=== PATIENT | female | born 1950 | race Caucasian/White ===

== ENCOUNTER → 2021-12-11 15:32 | Outpatient (CLI) | payer OTHER, SELFPAY ==
--- NOTE | 2021-12-11 | DI.MRI.S_ITS ---
PROCEDURE: MR CERVICAL SPINE WO CON INDICATIONS: Spinal stenosis, cervical region TECHNIQUE: Noncontrast sagittal T1 spin echo and T2 fast spin echo, sagittal STIR, foraminal oblique sagittal T2 fast spin echo, and axial gradient echo or T2 fast spin echo through the cervical spine. COMPARISON: None. FINDINGS: Image quality: Excellent. Alignment and Curvature: Grade 1 degenerative anterior spondylolisthesis noted at C7-T1 Bone Marrow: Modic type 1 degenerative endplate changes noted C5-6 Spinal Cord: Visualized spinal cord has normal size and signal. No cerebellar tonsillar herniation. Paraspinous Soft Tissues: No paravertebral masses. Prevertebral soft tissues are normal in thickness. C2-C3: Posterior central disc protrusion measures 3 mm in thickness and indents the ventral surface of the cord. Moderate central stenosis. No foraminal stenosis C3-C4: Disc space narrowing and posterior disc osteophyte complex flattens the ventral surface of the cord. Moderate central stenosis. No foraminal stenosis. C4-C5: Disc space narrowing with posterior disc osteophyte complex and hypertrophic facet joints results in flattening the ventral surface of the cord and moderate central stenosis. Moderate right and no left foraminal stenosis. C5-C6: Disc space narrowing and posterior disc osteophyte complex flattens the ventral surface of the cord results in moderate to severe central stenosis, narrowing the AP diameter of the thecal sac to 6 mm. Moderate bilateral foraminal stenosis present. C6-C7: Disc space narrowing and posterior disc osteophyte complex results in moderate central stenosis. Hypertrophic facet joints uncovertebral joints contribute to moderate bilateral foraminal stenosis. C7-T1: Disc space narrowing and posterior disc bulge noted without central or foraminal stenosis. IMPRESSION: Multilevel degenerative disc disease and arthropathy results in varying degrees of central and foraminal stenosis including moderate to severe central stenosis at C5-6 and moderate central stenosis at C2-3 through C4-5 Approved by: Brennen Rodriguez M.D. on 12/11/2021 at 16:36
== END ==
PROVIDERS: PCP Physician Assistant; Referring Provider Physical Medicine & Rehabilitation; Visit Provider Physical Medicine & Rehabilitation
DX: M48.02 Spinal stenosis, cervical region (principal); M47.812 Spondylosis without myelopathy or radiculopathy, cervical region; M50.31 Other cervical disc degeneration, high cervical region
CPT/HCPCS: 72141

== ENCOUNTER → 2022-12-25 11:07 | Outpatient (CLI) | payer OTHER, SELFPAY ==
--- NOTE | 2022-12-25 11:09 | DI.MRI.S_ITS ---
PROCEDURE: MR LUMBAR SPINE WO CON INDICATIONS: Spondylolisthesis, lumbar region TECHNIQUE: Noncontrast sagittal T1 spin echo and T2 fast echo, sagittal STIR, and T2 fast spin echo through the lumbar spine. In cases with scoliosis, additional coronal T2 fast spin echo may be performed. COMPARISON: None. FINDINGS: Image quality: Excellent. Alignment and Curvature: Grade 1 degenerative anterior spondylolisthesis noted at L4-5 Bone Marrow: Marrow is of normal overall signal. No acute vertebral body compression fractures. Spinal Cord: Conus medullaris terminates at the L1 level. Visualized cord demonstrates normal signal and size. Paraspinous Soft Tissues: No paravertebral masses. T12-L1: Normal appearance. L1-L2: Normal appearance. L2-L3: Normal appearance. L3-L4: Disc space narrowing and circumferential disc bulge with hypertrophic facet joints results in mild central stenosis. Moderate bilateral foraminal stenosis L4-L5: Disc space narrowing and hypertrophic facet joints with ligamentum flavum laxity and circumferential disc bulge all combined result in severe central stenosis. Mild bilateral foraminal stenosis. L5-S1: Hypertrophic facet joints noted with circumferential disc bulge. There is a superimposed focal left subarticular disc protrusion/extrusion with inferior migration a noted, filling the left lateral recess displacing the descending nerve root. Mild central stenosis. Mild bilateral foraminal stenosis. IMPRESSION: Multilevel degenerative disc disease and arthropathy results in varying degrees of central and foraminal stenosis including severe central stenosis L4-5. Focal disc protrusion/extrusion with inferior migration fills the left lateral recess at L5-S1 Approved by: Brennen Rodriguez M.D. on 12/25/2022 at 18:07
== END ==
PROVIDERS: PCP Physician Assistant; Referring Provider Orthopaedic Surgery Orthopaedic Surgery of the Spine; Visit Provider Orthopaedic Surgery Orthopaedic Surgery of the Spine
DX: M43.16 Spondylolisthesis, lumbar region (principal); M48.061 Spinal stenosis, lumbar region without neurogenic claudication; M48.07 Spinal stenosis, lumbosacral region; M51.36 Other intervertebral disc degeneration, lumbar region; M51.37 Other intervertebral disc degeneration, lumbosacral region; M47.816 Spondylosis without myelopathy or radiculopathy, lumbar region; M47.817 Spondylosis without myelopathy or radiculopathy, lumbosacral region; M51.27 Other intervertebral disc displacement, lumbosacral region
CPT/HCPCS: 72148

== ENCOUNTER → 2023-02-13 14:49 | Outpatient (CLI) | payer OTHER, SELFPAY ==
[2023-02-13 15:35] LABS: Add Manual Diff / Slide Review NO; Basophils Absolute Auto 100 /uL (0-100); Basophils Percent Auto 0.8 % (0-2); Eosinophils Absolute Auto 100 /uL (0-450); Eosinophils Percent Auto 1.1 % (2-4); Hematocrit 42.4 % (36-46); Hemoglobin 14.8 g/dL (12.0-16.0); Lymphocytes Absolute Auto 2000 /uL (1100-4500); Lymphocytes Percent Auto 24.3 % (25-40); Mean Corpuscular HGB Conc 34.9 % (30-36); Mean Corpuscular Hemoglobin 32.9 PG (26-34); Mean Corpuscular Volume 94.4 fL (80-100); Monocytes Absolute Auto 400 /uL (0-900); Neutrophils Absolute Auto 5600 /uL (1500-7000); Neutrophils Percent Auto 68.8 % (50-75); Platelet Count 306 X10^3/uL (150-400); Red Blood Cell Count 4.49 X10^6/uL (4.0-5.2); Red Cell Distribution Width 12.6 % (11.6-14.8); White Blood Cell Count 8.2 X10^3/uL (4.5-11.0)
[2023-02-13 15:38] LABS: Hemoglobin A1C% w Est Avg Glu 5.4 % (4.0-6.0)
[2023-02-13 15:46] LABS: BUN Creatinine Ratio 27.6 (6-22); Blood Urea Nitrogen 16 mg/dL (7-17); Calcium 9.3 mg/dL (8.4-10.2); Carbon Dioxide 30 mmol/L (22-32); Chloride 103 mmol/L (98-107); Estimated Glomerular Filt Rate > 60 mL/min (>60); Glucose 158 mg/dL (80-110); HEMOLYSIS < 15 (0-50); Potassium 3.8 mmol/L (3.4-5.1); Sodium 138 mmol/L (137-145)
== END ==
PROVIDERS: PCP Physician Assistant; Referring Provider Orthopaedic Surgery Orthopaedic Surgery of the Spine; Visit Provider Orthopaedic Surgery Orthopaedic Surgery of the Spine
DX: Z01.818 Encounter for other preprocedural examination (principal); R73.9 Hyperglycemia, unspecified; Z01.812 Encounter for preprocedural laboratory examination
CPT/HCPCS: 36415; 80048; 83036; 85025; 93005

== ENCOUNTER → 2023-02-19 09:58 | Outpatient (CLI) | payer OTHER, SELFPAY ==
--- NOTE | 2023-02-19 | DI.CT.S_ITS ---
PROCEDURE: CT LUMBAR SPINE WO CON INDICATIONS: Spinal stenosis, lumbar region with neurogenic cla TECHNIQUE: Noncontrast 0.8 mm thick sections acquired from the T12 level to the sacrum. Sagittal and coronal reformats were constructed. For radiation dose reduction, the following was used: automated exposure control. COMPARISON: [facility], MR, MR LUMBAR SPINE WO CON, 12/25/2022, 11:25. [facility], CR, XR LUMBAR SPINE 2 OR 3 VIEWS, 12/03/2022, 14:51. FINDINGS: Image quality: Excellent. Bones: No acute vertebral body compression fractures. No suspicious lytic or blastic bony lesions. No pars defects. Minimal retrolisthesis is seen at L1-L2. Minimal anterolisthesis is seen at the L4-L5 and the L5-S1 levels. T12-L1: Normal. L1-L2: The disc height is relatively well preserved. Mild generalized disc bulge is seen. There is a mild central disc protrusion. There is mild left-sided and no right-sided neural foraminal narrowing. No central canal narrowing is seen. L2-L3: Normal. L3-L4: The disc height is relatively well preserved. Moderate generalized disc bulge is seen. Moderate facet joint hypertrophy is seen. There is moderate right-sided and ihyi-[id number] left-sided neural foraminal narrowing. Moderate central canal narrowing is seen. L4-L5: The disc height is relatively well preserved. Moderate disc bulge is seen, with a central disc protrusion. Moderate to prominent facet hypertrophy is seen at this level. At least moderate bilateral neural foraminal narrowing can be seen. Moderate to severe central canal narrowing is seen. L5-S1: Mild loss of disc height is seen. Vacuum disc phenomenon is seen at this level. Mild generalized disc bulge is seen. At least moderate facet hypertrophy is seen. There is moderate right-sided and njpo-fh-mcdngifh left-sided neural foraminal narrowing. Moderate central canal narrowing is seen. Soft tissues: No retroperitoneal masses or hematomas. Visualized aorta is normal in caliber. Atherosclerotic calcification is noted. Colonic diverticulosis is seen, without findings of active diverticulitis. IMPRESSION: Multiple levels of lumbar spine degenerative change can be seen, which are overall worst at the L4-L5 level. The degenerative changes are similar to the recent prior MRI. Additional findings: Diverticulosis, without active diverticulitis Dictated by: Uri Casper M.D. on 02/19/2023 at 10:15 Approved by: Uri Casper M.D. on 02/19/2023 at 10:20
== END ==
PROVIDERS: PCP Physician Assistant; Referring Provider Orthopaedic Surgery Orthopaedic Surgery of the Spine; Visit Provider Orthopaedic Surgery Orthopaedic Surgery of the Spine
DX: M48.062 Spinal stenosis, lumbar region with neurogenic claudication (principal)
CPT/HCPCS: 72131

== ENCOUNTER 2023-02-28 09:43 | Inpatient (IN) | payer OTHER, SELFPAY ==
[2023-02-24 09:27] VITALS: BMI 27.6
[2023-02-28] VITALS (14 sets, daily range): BP systolic 126–188; BP diastolic 65–98; PULSE 100–116; RESP 12–19; TEMP 36.3–37.2; O2SAT 94–100; BMI 27.6
--- NOTE | 2023-02-28 | DI.RAD.S_ITS ---
PROCEDURE: XR LUMBAR SPINE 2-3V INDICATIONS: TLIF TECHNIQUE: 2 intraoperative fluoroscopic views of the lumbar spine were acquired. COMPARISON: None. FINDINGS: Intraoperative fluoroscopic views during posterior spinal fixation and discectomy. IMPRESSION: Intraoperative fluoroscopic views during posterior spinal fixation and discectomy. Dictated by: Cody Bey M.D. on 02/28/2023 at 16:54 Approved by: Cody Bey M.D. on 02/28/2023 at 16:54
[2023-02-28] MEDS: LACTATED RINGERS 1,000 ML 42 ML IV ×2 (10:48→14:04)
--- NOTE | 2023-02-28 12:12 | PM.PREOP ---
Pre-operative Note Interval Note History & Physical reviewed/Exam performed by Physician: Yes Changes to H&P: No
--- NOTE | 2023-02-28 13:37 | SUR.OPER ---
Prone on spine table, head in foam head support, padded chest and pelvic supports, gel pad at knees, lower legs supported by pillows; nipples, genitalia and toes free of pressure, arms secured on foam padded arm boards at <90 degrees abduction. Tape over blanket at thigh secured to table.
[2023-02-28] MEDS: BUPIVACAINE LIPOSOME 266 MG/20 ML VIAL INJ (14:06)
[2023-02-28] MEDS: BUPIVACAINE 0.5% (PF) 30 ML, EPINEPHrine 0.15 MG INJ (14:06)
--- NOTE | 2023-02-28 16:52 | P.OP_ITS ---
Operative Date/Time/Diagnoses Date of procedure: 02/28/23 Time of procedure: 12:30 Pre-op diagnosis: 1. L4-5, L5-S1 spinal stenosis with neurogenic claudication 2. L4-5, L5-S1 spondylolisthesis Post-op diagnosis: same Procedure & Clinicians Procedure: 1. L4-5, L5-S1 Postero-lateral and posterior interbody fusion 2. L4-5, L5-S1 interbody cage placement. 3. L4-5, L5-S1 decompressive laminectomy with bilateral facetecomies 4. L4-5, L5-S1 Posterior segmental instrumentation 5. [place] of bone marrow from iliac crest 6. Utilization of microsurgical technique and operating microscope 7. Utilization of robotic assisted navigation Same procedure as scheduled: Yes Indications: Patient has been having chronic back pain and worsening lumbar radiculopathy and symptoms of neurogenic claudication. Patient failed multiple conservative management with worsening pain weakness and numbness in her lower extremity. Patient has been having difficulty performing activity of daily living. After discussing risks benefits of treatment options, patient elected proceed with surgery. Surgeon: Mary Ann Pal Linen Room Attendant: Liam Loaiza Click Yes if Unassisted: No Anesthesia Type: General Operative Notes Closure Type: primary Specimen(s): none sent Prosthetic devices, grafts, tissues, transplants, or devices: Globus CREO MIS screws, Rise cages Applied: catheter Estimated Blood Loss (mL): 150 Blood products transfused: none Procedure in detail: Patient was seen in the preoperative area. Risks and benefits of the surgery was discussed with the patient. Informed consent was obtained from the patient and placed in the chart. Surgical site was marked. Patient was taken to the operative room. General anesthesia was administered. Prophylactic antibiotic was given to the patient less than 30 min before the incision was made. Patient was placed into a prone position on the Sergio table. Patient's back was then prepped and draped in the sterile fashion. Time-out was performed at this time. After patient was prepped and draped, patient's PSIS was palpated and marked bilaterally. Small 1 cm incision was made over the PSIS for placement of the reference probes. Two trocar was placed into the PSIS 1 on each side. The reference probe was attached to the trocar of the reference apparatus. At this time the C-arm imaging was used to confirm AP and lateral of L4-L5, L5- S1 vertebrae and merged the C-arm imaging using the [place] robotic navigation system with the CT of the lumbar spine. After successful merging was completed and confirmed, skin marker was used to manish out the skin incision using the [employer] robotic arm. Bilateral incision was made at this time. Pre templated trajectory was used and guided using the [employer] navigation system for bilateral L4, L5, S1 pedicle screw placement. This was done by using the robotic arm to guide the high-speed bur to make a cortical entry point. Next a drill was placed also using the robotic arm and guided using the navigation system drilling partially through bilateral L4, L5 and S1 pedicles. Next L4, L5, S1 pedicle screws it was pre templated and measured was placed onto the power industrial tractor driver and inserted into the pedicles bilaterally. After all 6 screws were placed C-arm imaging was taken of both AP and lateral to confirm the placement. Excellent placement of the screws were confirmed and a matched precisely with the pre planned screw placement using the navigation system. MARs retractor was inserted using [employer] guidence. Globus MARS retractors was placed inside the incision and docked onto the L4 and L5 lamina. Using microsurgical technique and operating microscope, a L4, L5 laminectomy and L4-5, L5-S1 facetectomy was performed using a [place] rongeur. The laminectomy and facetectomy was performed in order to decompress patient's cauda equina as well as the nerve roots exiting at the L4-5, L5-S1 level. Patient was found have severe lateral recess and neural foramen stenosis which was fully decompressed after the laminectomy facetectomy. More than 75% of the facets were removed during the process of decompression rendering L4-5, L5-S1 level grossly unstable and required a fusion procedure at the same time. The disc space at L4-5, L5-S1 was identified, and a total diskectomy was performed at L4-5, L5-S1 level. The endplates were decorticated using a rasp and shaver. The total diskectomy and decortication was performed at L4-5, L5-S1 level in order to to accomplish a L4- 5, L5-S1 fusion. The local bone from the laminectomy and facetectomy was saved for local bone grafting. After the total diskectomy and decortication was completed, DBM bone graft material was combined with local bone that was harvested earlier. At this time, a separate skin is incision was made over the iliac crest. A Jamshidi needle was inserted into the iliac crest through a separate skin incision. 5 cc of bone marrow aspiration was obtained through the separate skin incision using a Jamshidi needle from the iliac crest. The bone marrow aspiration was combined with local bone and the DBM bone grafting material. The bone grafting material was placed into the L4-5, L5-S1 interbody space along with a expandable cage. The cage was expanded to its maximum height using the torque limiting screwdriver. The disc preparation as well as the cage insertion were also performed under navigation guidance. After the cage was placed, AP and lateral C-arm imaging was taken to confirm placement of the cage and excellent position was confirmed. Globus MARS retractor was inserted and docked onto the L4-5, L5-S1 posterolateral gutter on the right side. Using the power drill, posterior- lateral decortication was performed at L4-5, L5-S1 level until bleeding cortical bone was identified. The remaining bone grafting material was placed into the L4-5, L5-S1 posterior lateral gutter he order to accomplish posterolateral fusion at the L4-5, L5-S1 level. At this time the tulips were attached to the L4, L5, S1 pedicle screw shanks. After measuring the length of the rods, they were inserted into the t[place]ips of the pedicle screws and locked in place using locking caps and torque limiting screwdriver bilaterally. Total 6 caps and 2 titanium rods was used in order to complete the posterior instrumentation construct. After all the hardware was placed, and confirmed with AP and lateral C-arm imaging, the wound was then irrigated with sterile normal saline and packed with Ray-Debby gauze for 3 min to accomplish hemostasis. After the gauze was removed the deep fascia was closed with #1 Vicryl suture. The subcutaneous layer was closed with 2-0 Vicryl. The skin was closed with skin kacy. Patient tolerated the procedure well. There were no complications. Neuro monitoring system was used to monitor patient's neurologic status throughout entire procedure. There was no disturbance of the neural monitoring signals throughout the case. Complications: none Post-operative Condition: stable Disposition: PACU Plan for aftercare: Admit to inpatient hospital
[2023-02-28] MEDS: HYDROMORPHONE 1 MG INJ IV ×2 (17:18→17:30)
[2023-02-28] MEDS: LABETALOL 20 MG/4 ML SYRINGE 5 MG IV (17:21)
[2023-02-28] MEDS: hydrOXYzine 50 MG/ML INJ 25 MG IM (17:24)
[2023-02-28] MEDS: LACTATED RINGERS 1,000 ML 125 ML IV (18:47)
[2023-02-28] MEDS: OXYCODONE IR 10 MG TABLET PO ×2 (18:50→23:16)
[2023-02-28] MEDS: HYDROMORPHONE 0.5 MG INJ IV (20:17)
[2023-02-28] MEDS: ACETAMINOPHEN 325 MG TABLET 650 MG PO (20:17)
[2023-02-28] MEDS: CEFAZOLIN 2 GM/100 ML PREMIX 100 ML IV (21:51)
[2023-02-28] MEDS: TRAMADOL 50 MG TABLET PO (21:52)
[2023-02-28] MEDS: SENNOSIDES 8.6 MG TABLET 17.2 MG PO (21:52)
[2023-02-28] MEDS: DOCUSATE 100 MG CAPSULE PO (21:52)
[2023-02-28] MEDS: GABAPENTIN 600 MG TABLET PO (21:52)
[2023-02-28] MEDS: ATORVASTATIN 20 MG TABLET PO (21:52)
[2023-02-28] MEDS: hydrOXYzine pamoate 25 MG CAPSULE PO (23:16)
[2023-03-01 00:37] VITALS: BP 117/60; PULSE 93; RESP 18; TEMP 36.7; O2SAT 93
[2023-03-01] MEDS: HYDROMORPHONE 0.5 MG INJ IV (01:10)
[2023-03-01 04:00] VITALS: BP 118/57; PULSE 86; RESP 18; TEMP 36.5; O2SAT 94
[2023-03-01] MEDS: ACETAMINOPHEN 325 MG TABLET 650 MG PO ×2 (05:40→12:30)
[2023-03-01] MEDS: OXYCODONE IR 10 MG TABLET PO ×3 (05:41→12:30)
[2023-03-01] MEDS: CEFAZOLIN 2 GM/100 ML PREMIX 100 ML IV (05:41)
[2023-03-01] MEDS: LEVOTHYROXINE 25 MCG TABLET 75 MCG PO (05:41)
[2023-03-01 06:31] LABS: Hematocrit 33.5 % (36-46); Hemoglobin 11.4 g/dL (12.0-16.0)
[2023-03-01 08:00] VITALS: BP 124/59; PULSE 90; RESP 16; TEMP 36.2; O2SAT 90
[2023-03-01] MEDS: VENLAFAXINE 37.5 MG TABLET 225 MG PO (08:19)
[2023-03-01] MEDS: MONTELUKAST 10 MG TABLET PO (08:20)
[2023-03-01] MEDS: LORATADINE 10 MG TABLET PO (08:20)
[2023-03-01] MEDS: hydrOXYzine pamoate 25 MG CAPSULE PO (08:20)
[2023-03-01] MEDS: DOCUSATE 100 MG CAPSULE PO (08:20)
[2023-03-01] MEDS: GABAPENTIN 600 MG TABLET PO (08:20)
--- NOTE | 2023-03-01 08:58 | PM.PNPO.1 ---
Subjective Subjective Date Patient Seen: 03/01/23 Time Patient Seen: 08:58 Interval history: Patient's pain is mild. Denies fever chills. No shortness of breath or chest pain patient states she noticed her left lower lip is swollen. She states her lip typically starts swelling and then continues to have some facial swelling. 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 Exam Vital Signs (past 8 hours): - 03/01/23 04:00 Temperature 97.7 F Pulse Rate 86 Respiratory Rate 18 Blood Pressure 118/57 L Pulse Oximetry 94 Oxygen Flow Rate 2 Oxygen Delivery Method Nasal Cannula Oxygen Flow Rate 2 Narrative Exam Narrative: 72-year-old female in no apparent distress. Motor function is intact bilateral lower extremities. Sensation grossly intact to light touch bilateral lower extremities. Mild swelling left lower lip. Const General: cooperative and comfortable Nutritional Appearance: average body habitus Orientation: alert Resp Effort & Inspection: normal respiratory effort and able to speak in complete sentences Objective Labs 03/01/23 05:35 Labs: Laboratory Results - last 24 hr 03/01/23 05:35 Hgb 11.4 L Hct 33.5 L PFSH Medical History (Updated 02/24/23 @ 10:21 by Lacy Madden RN) Depression Easy bruisability Arthritis Spinal stenosis Hypothyroidism HLD (hyperlipidemia) HTN (hypertension) SRUTHI on CPAP Sciatica Seasonal allergies Surgical History (Updated 02/24/23 @ 10:21 by Lacy Madden RN) Hx of arthroscopy of right knee H/O right wrist surgery History of arthroscopy of left shoulder Hx of repair of right rotator cuff Hx of breast reduction, elective History of urologic surgery History of hysterectomy Hx of nasal septoplasty Hx of bilateral cataract extraction Social History household members: spouse Smoking Status: Never smoker alcohol intake: current Assessment & Plan Post-op Postoperative Procedures: Procedures Operation Date: 02/28/23 11:45 Actual Procedure Side Surgeon p L4-5, L5-S1 TLIF with posterior instrumentation-Robot Mary Ann Pal MD Postoperative day: 1 Postoperative status: doing well Postoperative status narrative: Stable status post lumbar fusion. Postoperative plan: routine post-op care Postoperative plan narrative: Mobilize with physical therapy, limit bending, twisting, lifting Due to multiple allergies and sensitivity to medication we will go ahead and give her prednisone today and 1 again tomorrow per her routine recommended by regional company hazmat tanker driver Multimodal pain management Disposition, likely home tomorrow Quality VTE Deep Vein Thrombosis/Pulmonary Embolism Present on Admission: No
[2023-03-01] MEDS: predniSONE 20 MG TABLET PO (08:59)
--- NOTE | 2023-03-01 09:04 | PC.NURSE ---
Addendum entered by Martha Stanton R.N. 03/01/23 12:08: pt was able to take her allergy medication. no further swelling. cox taken out and already voided to the bathroom. Original Note: lt side of her lip started swelling. MIRNA Wheeler in the room and was informed about her allergic reaction due to cefazolin. gave 20mg of prednisone. patient waiting for her zyrtec from home.
--- NOTE | 2023-03-01 09:30 | PT.IIE ---
Current Diagnoses Spondylolisthesis, lumbar region (02/28/23) Spinal stenosis, lumbar region with neurogenic claudication (02/28/23) Surgery Performed Operation Date: 02/28/23 11:45 Actual Procedures p L4-5, L5-S1 TLIF with posterior instrumentation-Robot - Mary Ann Pal MD Surgical History (Last Updated 02/24/23 @ 10:21 by Lacy Madden, RN) H/O right wrist surgery History of arthroscopy of left shoulder History of hysterectomy History of urologic surgery Hx of arthroscopy of right knee Hx of bilateral cataract extraction Hx of breast reduction, elective Hx of nasal septoplasty Hx of repair of right rotator cuff Medical History (Last Updated 02/24/23 @ 10:21 by Lacy Madden, RN) Arthritis Depression Easy bruisability HLD (hyperlipidemia) HTN (hypertension) Hypothyroidism SRUTHI on CPAP Sciatica Seasonal allergies Spinal stenosis Physical Therapy Inpatient Evaluation/Re-Eval M1 PT/OT-IP Prior Functional Status Start: 03/01/23 13:00 Freq: NEEDED Status: Active Protocol: Document 03/01/23 09:30 AB (Rec: 03/01/23 13:17 AB [id number]) Medical Review Prior Functional Status Medical History Reviewed Yes Communication able to make needs known Mobility and Gait pt stated that she is independent with all mobilities and ambulation without AD Social History Household Members spouse Living Arrangements House Number of Floors (Floors) One Floor Number of Stairs To Enter/Railing? 2 steps to enter without rails from the front; 5 steps R rail to get into the house from the garage Home Environment Tub/Shower Home Equipment Four Wheel Walker,Straight Cane,Shower Seat with Backrest ,Hand Held Shower,Grab Bars In Shower M2 PT-IP Current Condition Start: 03/01/23 13:00 Freq: NEEDED Status: Active Protocol: Document 03/01/23 09:30 AB (Rec: 03/01/23 13:17 AB [email or web address]) Physical Therapy Current Condition Current Condition Evaluation Date 03/01/23 Treatment Diagnosis s/p L4-5, L5S1 TLIF; difficulty in walking Onset Date 02/28/23 M3 PT-IP Subjective Start: 03/01/23 13:00 Freq: NEEDED Status: Active Protocol: Document 03/01/23 09:30 AB (Rec: 03/01/23 13:17 AB [id number]) Subjective Physical Therapy Visit Type Type Initial Evaluation Visit Start Time 09:30 Visit Stop Time 10:20 Total Visit Minutes 50 Number of CHEMICAL ENGRAVER Visits 0 Physical Therapy Visit Comments Patient Comments pt agreeable to do PT Therapy Pain Assessment Pain When Pain Assessed During Mobility Pain Present Pain Present Pain Reported Location Bilateral Shoulder Scale Used severe pain per pt Description With Movement Pain Management Techniques Distraction,Modification of Treatment,Timing of Activity with Medications Lower Back Intensity 5 Scale Used Numeric (0 - 10) Pain Management Techniques Apply Cold,Distraction, Modification of Treatment,Re- positioning,Timing of Activity with Medications M4 PT-IP Mobility and Gait Start: 03/01/23 13:00 Freq: NEEDED Status: Active Protocol: Document 03/01/23 09:30 (Rec: 03/01/23 13:17 [id number]) PT-Bed Mobility Assessment Rolling Type of Rolling Log Rolling Level of Assist Maximal Assistance Supine to Sit Supine to Sit Maximum Assistance PT-Transfer Assessment Sit to and From Stand Sit to and from Stand Moderate Assistance,1 Person Assistance,Use of Upper Extremities Equipment Transfer Assistive Device Gait Belt,Front Wheeled Walker Orthotic/Prosthetic Devices or Brace: No Transfers Transfer Destination Chair Transfer Technique ambulated Transfer Ability Level of Assist Moderate Assistance,1 Person Assistance,Use of Upper Extremities Comments Mobility Comments pt supine in bed. agreeable to do PT. educated on back precautions and log roll bed mobility. BP: 133/73. completed log roll supine to sit max A and max cues. able to sit on EOB SBA. BP: 136/73 . c/o increase back pain. completed sit to stand mod A and max cues. ambulated towards the chair ~ 12 ft using FWW mod A and cues. presents with heavy UE use on FWW for support, slow paced unsteady gait with decrease LE elevation and stride. pt c/o increase overall LBP and B shoulder pain. pt stated that she has neck issues and is in need of sx. instructed pt to do sit to stand from chair and completed mod A and max cues. pt sat back on chair and c/o more pain and unable to do further activities. pt agreed to sit up on the chair. positioned on the chair. ice pack provided. call light and table placed within reach. Gait Assessment Gait Gait Assistance Required: Moderate Assistance,1 Person Assist Distance (Feet) 50 Able to Maintain Weight Bearing Status Yes During Gait Assistive Devices Assistive Device Gait Belt,Front Wheeled Walker Orthotic/Prosthetic Devices or Brace: No Gait Deviations General Gait Pattern Decreased Stride Length, Decreased Feet Clearance,Step- to Gait Factors Limiting Gait Function Factors Limiting Gait Function Decreased Activity Tolerance, Decreased Sensation,Decreased Strength,Difficulty Following Directions,Limited Range of Motion,Pain,Poor Balance,Poor Safety Awareness PT-Balance Assessment Sitting Balance and Reactions Static Sitting Balance Ability Good Dynamic Sitting Balance Ability Fair Standing Balance and Reactions Static Standing Balance Ability Poor Dynamic Standing Balance Ability Poor Device Used FWW M5 PT-IP Objective Assessments Start: 03/01/23 13:00 Freq: NEEDED Status: Active Protocol: Document 03/01/23 09:30 AB (Rec: 03/01/23 13:17 [email or web address]) Orientation Orientation/Cognition Level of Alertness Alert Orientation Name,Place Safety Awareness Decreased Safety Awareness Memory Description Short Term Impaired Gross Range of Motion Lower Extremity ROM Assessment Within Functional Limits Strength Lower Extremity Strength Hip 3+/5 Knee 4-/5 Coordination Assessment Gross Coordination Gross Coordination WNL Sensation Assessment Sensation Gross Sensation Left LE Impaired Sensation Description Numbness Comments Sensation Comments chronic LLE numbness per pt Muscle Tone Muscle Tone WNL Yes M6 PT-IP Treatment Start: 03/01/23 13:00 Freq: NEEDED Status: Active Protocol: Document 03/01/23 09:30 AB (Rec: 03/01/23 13:17 [email or web address]) Physical Therapy Treatment Education Education Provided Precautions,Weight Bearing Status,Post-Op Packet,Safety M7 PT-IP Assessment and Plan Start: 03/01/23 13:00 Freq: NEEDED Status: Active Protocol: Document 03/01/23 09:30 AB (Rec: 03/01/23 13:17 [email or web address]) PT Summary Assessment and Plan Potential Rehabilitation Potential Fair Status of Condition at Evaluation Evolving Summary Impairments Pain,ROM,Strength,Balance, Coordination,Sensation,Tone, Cognition,Bed Mobility, Transfers,Gait,Activity Tolerance Assessment Summary pt is a 72 y/o female who underwent L4-5, L5S1 TLIF. pt requiring max a and max cues with bed mobility, mod A for ambulation using FWW but only ambulated ~ 12 ft. pt with c/o increase LBP and bilateral shoulder pain affecting mobility and activity tolerance. Caregiver training set up this afternoon ~ 130 pm. d/c plan depending on progress. will continue to assess progress. Goals Bed Mobility Goal Standby Assistance Transfer Goal Standby Assistance,Front Wheeled Walker Gait Goal Standby Assistance,Front Wheel Walker Gait Distance 200 Other Goals up/down 5 steps R rail SBA ; 2 steps SPC + BUSINESS ADMINISTRATION INSTRUCTOR CGA improve bed mobility, transfers, ambulation using LRAD 250 ft mod I Days to Meet Goals 5 Frequency of Treatment Frequency Of Treatment Twice a Day Treatment Plan Physical Therapy Treatment Plan Bed Mobility Training,Transfer Training,Gait Training, Therapeutic Exercise,Balance Retraining,Post Op Education, Discharge Planning,Hot or Cold Pack,Neuromuscular Re-ed, Coordination Retraining,Manual Therapy Precautions Lumbar Precautions Log Roll,No Twisting,Limit Bending,Lifting Restriction of 10 lbs,Gait Belt above Incisional Area Recommendations To Nursing Amount of Assist Needed 1 Person Assist Discharge Recommendations PT Discharge Recommendations Home with 09/12 Assist Available,Home Health,SNF Rehab,Home vs SNF Equipment Needed for Home Before FWW Discharge Transportation Needs at Discharge Private Vehicle,Wheelchair/ Cabulance
[2023-03-01 12:00] VITALS: BP 147/71; PULSE 103; RESP 17; TEMP 36.1; O2SAT 98
--- NOTE | 2023-03-01 13:12 | PT.IPTN ---
Current Diagnoses Spondylolisthesis, lumbar region (02/28/23) Spinal stenosis, lumbar region with neurogenic claudication (02/28/23) Surgery Performed Operation Date: 02/28/23 11:45 Actual Procedures p L4-5, L5-S1 TLIF with posterior instrumentation-Robot - Mary Ann Pal MD Physical Therapy Treatment Note M2 PT-IP Current Condition Start: 03/01/23 13:00 Freq: NEEDED Status: Active Protocol: Document 03/01/23 09:30 AB (Rec: 03/01/23 13:17 AB [email or web address]) Physical Therapy Current Condition Current Condition Evaluation Date 03/01/23 Treatment Diagnosis s/p L4-5, L5S1 TLIF; difficulty in walking Onset Date 02/28/23 M3 PT-IP Subjective Start: 03/01/23 13:00 Freq: NEEDED Status: Active Protocol: Document 03/01/23 13:45 TS (Rec: 03/01/23 14:03 TS [id number]) Subjective Physical Therapy Visit Type Type Treatment Note Visit Start Time 13:12 Visit Stop Time 13:43 Total Visit Minutes 31 Notes Spouse present for caregiver training. Number of PLANT GUIDE Visits 1 Physical Therapy Visit Comments Patient Comments Pt found resting in bed, reports she is feeling better and wouldlike to go home. Pt agreeable to PT. Therapy Pain Assessment Pain When Pain Assessed During Mobility Pain Present Pain Present Pain Reported M4 PT-IP Mobility and Gait Start: 03/01/23 13:00 Freq: NEEDED Status: Active Protocol: Document 03/01/23 13:45 TS (Rec: 03/01/23 14:03 TS [id number]) PT-Bed Mobility Assessment Rolling Type of Rolling Log Rolling Level of Assist Standby Assistance Supine to Sit Supine to Sit Contact Guard Assistance Sit to Supine Sit to Supine Contact Guard Assistance Scooting Scooting to Edge of Bed Standby Assistance PT-Transfer Assessment Sit to and From Stand Sit to and from Stand Standby Assistance,Use of Upper Extremities Equipment Transfer Assistive Device Gait Belt,4 Wheeled Walker Orthotic/Prosthetic Devices or Brace: No Comments Mobility Comments Pt recalled 3/3 spinal precautions prior to mobility. Spouse was instructed in and performed donning of gait belt . Sit to stand SBA with 4WW and BUE support pushing from arms of chair. She ambulated ~ 300'CGA/SBA with 4WW, had no buckling or LOB. She performed stairs x6 CGA from spouse, pt and spouse were provided cues for step sequencing. Back in room pt performed sit to supine CGA with cues for coming down on shoulder. Supine to sit CGA, pt demonstrated good carryover of sequencing, cues were provided to spouse for handplacement. Sit to stand from bed SBA with BUE support, pt ambulated to chair SBA. She was left in chair with spouse in room, RN notified. Gait Assessment Gait Gait Assistance Required: Standby Assistance,Contact Guard Assist,1 Person Assist Distance (Feet) 300 Able to Maintain Weight Bearing Status Yes During Gait Assistive Devices Assistive Device Gait Belt,Front Wheeled Walker Orthotic/Prosthetic Devices or Brace: No Gait Deviations General Gait Pattern Decreased Stride Length, Decreased Feet Clearance,Step- to Gait Factors Limiting Gait Function Factors Limiting Gait Function Decreased Activity Tolerance, Decreased Sensation,Decreased Strength,Difficulty Following Directions,Limited Range of Motion,Pain,Poor Balance,Poor Safety Awareness Comments Gait Comments See mobility comments. Stair Climbing Assessment Evaluation Level of Assist On Stairs Contact Guard Assistance,1 Person Assistance Devices Stair Climbing Assistive Devices Right Railing Technique/Endurance Stair Climbing Direction Ascend and Descend Stair Climbing Technique Step Over Step Number of Steps Climbed 6 Comments Stair Climbing Comments See mobility comments. PT-Balance Assessment Sitting Balance and Reactions Static Sitting Balance Ability Good Dynamic Sitting Balance Ability Fair Standing Balance and Reactions Static Standing Balance Ability Good Dynamic Standing Balance Ability Fair Device Used FWW M5 PT-IP Objective Assessments Start: 03/01/23 13:00 Freq: NEEDED Status: Active Protocol: Document 03/01/23 09:30 AB (Rec: 03/01/23 13:17 AB [id number]) Orientation Orientation/Cognition Level of Alertness Alert Orientation Name,Place Safety Awareness Decreased Safety Awareness Memory Description Short Term Impaired Gross Range of Motion Lower Extremity ROM Assessment Within Functional Limits Strength Lower Extremity Strength Hip 3+/5 Knee 4-/5 Coordination Assessment Gross Coordination Gross Coordination WNL Sensation Assessment Sensation Gross Sensation Left LE Impaired Sensation Description Numbness Comments Sensation Comments chronic LLE numbness per pt Muscle Tone Muscle Tone WNL Yes M6 PT-IP Treatment Start: 03/01/23 13:00 Freq: NEEDED Status: Active Protocol: Document 03/01/23 13:45 TS (Rec: 03/01/23 14:03 TS [id number]) Physical Therapy Treatment Education Education Provided Precautions,Weight Bearing Status,Post-Op Packet,Safety M7 PT-IP Assessment and Plan Start: 03/01/23 13:00 Freq: NEEDED Status: Active Protocol: Document 03/01/23 13:45 TS (Rec: 03/01/23 14:03 TS [id number]) PT Summary Assessment and Plan Potential Rehabilitation Potential Good Summary Impairments Pain,ROM,Strength,Balance, Coordination,Sensation,Tone, Cognition,Bed Mobility, Transfers,Gait,Activity Tolerance Progress Towards Goals Progressing Toward Goals Assessment Summary Shelby is making good progress with her mobility this session. She progressed her sit to stand to SBA with use of 4WW. She progressed her gait to ~300'SBA/CGA with 4WW, pt had no buckling or LOB. She performed stairs x6 with R rail CGA. She progressed her bed mobility to CGA and demonstrated good carryover of bed mobility sequencing with little cueing. Spouse was instructed in and performed donning of gait belt, assistance with bed mobility, sit to stands, gait and sequencing of stairs. PT is recommending pt return home with assist from spouse. Goals Bed Mobility Goal Standby Assistance Transfer Goal Standby Assistance,Front Wheeled Walker Gait Goal Standby Assistance,Front Wheel Walker Gait Distance 200 Other Goals up/down 5 steps R rail SBA ; 2 steps SPC + RAILROAD YARD WORKER CGA improve bed mobility, transfers, ambulation using LRAD 250 ft mod I Days to Meet Goals 5 Frequency of Treatment Frequency Of Treatment Twice a Day Treatment Plan Physical Therapy Treatment Plan Bed Mobility Training,Transfer Training,Gait Training, Therapeutic Exercise,Balance Retraining,Post Op Education, Discharge Planning,Hot or Cold Pack,Neuromuscular Re-ed, Coordination Retraining,Manual Therapy Precautions Lumbar Precautions Log Roll,No Twisting,Limit Bending,Lifting Restriction of 10 lbs,Gait Belt above Incisional Area Recommendations To Nursing Amount of Assist Needed 1 Person Assist Discharge Recommendations PT Discharge Recommendations Home with Assistance Equipment Needed for Home Before FWW Discharge Transportation Needs at Discharge Private Vehicle
--- NOTE | 2023-03-01 15:17 | CM.DANOTE ---
DCP Assessment Note: Patient is a 72yo F here following planned TLIF with Dr. Pal 02.28.23. PCP Arabella Ortiz Payer [employer] and self pay. Per PT note, safe for home with assistance. CAKE CUTTER MACHINE entered room and introduced self and role. Patient accompanied by spouse at bedside. Patient reports IADLs/drives at baseline. Owns a walker/cane/shower chair/grab bar. Patient and spouse confident patient can safely d/c home with spouse assistance. Reports no needs at this time. Plan: patient likely to d/c home today with spouse to transport in POV. No needs identified at this time. Cm team will continue to follow as needed. CHRIS Carroll Discharge Planning/Care Management CM Discharge Assessment Start: 03/01/23 15:15 Freq: Status: Discharge Protocol: Document 03/01/23 15:16 (Rec: 03/01/23 15:17 [id number]) Discharge Planning Assessment Assigned Investigation Officer CHRIS Wiley DPOA/Assigned Designee Name Pearl Palma (spouse) Contact Information [phone] Advance Directives? Yes Advance Directives on File Yes History Provided By Patient,Medical Record Prior Living Arrangements House Household Members spouse Type of transporation used prior to Drives own vehicle admit Independent with ADL's Yes Is patient alert and oriented? Yes DME Already Rented / Owned Bath Bench,FWW / Walker,Cane Barriers to Discharge No Discharge Plan Home Transportation Arrangement spouse in POV Whiteboard Updated in Patient Room with Yes name and ext. # of Investigation Officer Review Status In Process Next Review Type Continued Stay Review Pre-Anesthesia Assessment Start: 02/24/23 09:27 Freq: Status: Complete Protocol: Document 02/24/23 09:27 [facility] (Rec: 02/24/23 10:30 [facility] [id number]) Pre-Anesthesia Assessment Preferred Name Shelby Patient Information Reviewed Via Phone Assessment Assessment Completed With Patient Diagnostic Results BMP/CMP,CBC,EKG Comment Labs/EKG @ Primary Care Provider Arabella Ortiz Seen Specialist in Last 12 Months Yes Specialist Seen Opthamologist/Processor Inspector, Orthopedist Primary Language Bahamian Client Success Manager Required No Height 157.48 cm Weight 68.492 kg Body Mass Index (BMI) 27.6 Hearing Ability Normal Visual Assist Glasses Dentition Type Teeth, Natural Present,Teeth, Missing Barriers to Learning None Hx Anesthesia Reactions No Hx Family Anesthesia Reaction No Hx Malignant Hyperthermia No Hx Blood Transfusions No Anesthesia Review Requested No Voice Over Artist No alcohol intake current alcohol intake frequency holidays/special occasions only Smoking Status Never smoker Substance Use Type marijuana Comment Pt advised not to smoke marijuana 24 hours prior Pain Present Pain Reported Musculoskeletal Symptoms Abnormal Gait,Arthralgias,Back Pain,Difficulty Walking,Neck Pain,Radiating Pain into Limb History of Falling (Recent or History of Yes ) Patient is completely paralyzed or No completely immobile Mental Status Oriented to own ability Is patient on oxygen? No Does patient have DIAZ/SOB No Hx Sleep Apnea Yes CPAP/BIPAP use prescribed and used routinely Will Bring CPAP/BIPAP DOS Yes Currently Taking a Beta [place] No Hx Chest Pain No Hx SOB No Hx Syncope or Dizziness No Anti-Coagulant Therapy No Has a Cnc Maintenance Technician No Cardiac Testing No Hx Pacemaker/ICD No Pacemaker Rep Required? No Diet Type At Home Regular Dysphagia No Gastrointestinal Symptoms None Chronic UTI No Bladder Pattern Frequency,Nocturia Urinary Catheter Present No Hx Urinary Self Catheterization No Diabetes No HgbA1C 5.4 Date 02/13/23 Patient No Lactating No Hx Drug Resistant Organism No Presence of External or Internal Medical Yes: CPAP, bilat eye IOLs Devices Received a COVID vaccine? Yes Received all doses? Yes Marital Status Lives With spouse Current Living Arrangements House Number of Floors (Floors) One Floor Number of Stairs To Enter/Railing? 2 Support System Spouse Does the Patient Have Assistance After Yes Surgery Patient Discharge Plan Description Return Home Comment Pt not advised on length of stay per surgeon Feels Safe in Current Environment Yes Been Physically Hurt or Threatened By a No Person in Current Environment Do you have thoughts of harming yourself None or others? Are you currently considering suicide? No Do you have a plan to hurt yourself or No Plan others? Do You Have Any Spiritual Beliefs That No May Affect Your HC Choices? Do You Have Any Cultural Practices That No May Affect Your HC Choices? Comment Sonam Who Can We Speak to About Patient's Care Family, friends Identifying Code for Release of Patient Declines to issue Information Health Care Proxy/Next of Kin Huan () Health Care Proxy Emergency Contact Name Huan () Emergency Contact Advance Directives? Yes Advance Directives on File No Requested Patient Bring Advanced Yes Directives DOS Power of Data Warehouse Developer No PAC Instructions Bring CPAP/BIPAP,Durable medical equipment,Medications to take/avoid,Nasal antibiotic ,No ETOH/petroleum product on skin DOS,NPO,Post-op transportation,Pre-surgical wash,Sensory aids,Sturdy shoes /comfortable clothes,Do not bring valuables and remove jewelry
== END 2023-03-01 15:00 | disposition home or self-care (01) | DRG 455 ==
PROVIDERS: Admitting Provider Orthopaedic Surgery Orthopaedic Surgery of the Spine; PCP Physician Assistant; Referring Provider Orthopaedic Surgery Orthopaedic Surgery of the Spine; Visit Provider Orthopaedic Surgery Orthopaedic Surgery of the Spine
PROC: 0SG00AJ Fusion of Lumbar Vertebral Joint with Interbody Fusion Device, Posterior Approach, Anterior Column, Open Approach (ICD-10-PCS; principal; 2023-02-28 11:45)
DX: M43.16 Spondylolisthesis, lumbar region (principal); M48.062 Spinal stenosis, lumbar region with neurogenic claudication; M51.26 Other intervertebral disc displacement, lumbar region; M48.07 Spinal stenosis, lumbosacral region; M43.17 Spondylolisthesis, lumbosacral region; R22.0 Localized swelling, mass and lump, head
CPT/HCPCS: 36415; 72100; 76000; 85014; 85018; 97116; 97162; 97530; C1713; C9290; J0171; J0690; J1170; J2250; J3010; J3410

== ENCOUNTER → 2023-10-26 14:46 | Outpatient (CLI) | payer MEDICARE, SELFPAY ==
[2023-02-28 18:27] VITALS: BMI 27.6
--- NOTE | 2023-10-26 | DI.CT.S_ITS ---
PROCEDURE: CT LUMBAR SPINE WO CON INDICATIONS: Lumbar pain TECHNIQUE: Noncontrast 3 mm thick sections acquired from the T12 level to the sacrum. Sagittal and coronal reformats were constructed. For radiation dose reduction, the following was used: automated exposure control. COMPARISON: [facility], MR, MR LUMBAR SPINE WO CON, 12/25/2022, 11:25. [facility], CT, CT LUMBAR SPINE WO CON, 02/19/2023, 10:11. FINDINGS: Image quality: Excellent. Bones: Compared to CT dated February 19, 2023, interval posterior fusion hardware from L4-S1 with bilateral transpedicular screws and interbody disc spacers at L4-L5 and L5-S1. Hardware is intact with no perihardware lucency to suggest hardware loosening. Minimal retrolisthesis of L1 on L2 of approximately 2 mm. Minimal anterolisthesis of L4 on L5 and L5 on S1, similar to prior . No acute vertebral body compression fractures. No suspicious lytic or blastic bony lesions. No pars defects. T12-L1: Disc height is maintained. No central canal or osseous neural foraminal narrowing. L1-L2: Small disc osteophyte complex with mild ventral effacement of the central canal. No osseous neural foraminal narrowing. L2-L3: Disc height is maintained. No central or osseous neural foraminal narrowing. L3-L4: Small disc bulge with mild ventral effacement of the central canal. Moderate bilateral facet arthropathy with no mild bilateral osseous neural foraminal narrowing. L4-L5: Postsurgical changes, as above, with postsurgical changes of the left facets and moderate right facet arthropathy. L5-S1: Postsurgical changes as above, with postsurgical changes of the left facets and moderate right facet arthropathy. Soft tissues: No retroperitoneal masses or hematomas. Visualized aorta is normal in caliber. Mild calcification of the abdominal aorta. Colonic diverticulosis, without diverticulitis. IMPRESSION: 1. Compared to CT dated February 19, 2023, interval posterior fusion hardware from L4-S1. Hardware is intact without complication. Stable alignment. 2. Colonic diverticulosis, without diverticulitis. Dictated by: Reny Norman M.D. on 10/26/2023 at 20:27 Approved by: Reny Norman M.D. on 10/26/2023 at 20:35
== END ==
LOC: CT 14:52
PROVIDERS: PCP Physician Assistant; Referring Provider Orthopaedic Surgery Orthopaedic Surgery of the Spine; Visit Provider Orthopaedic Surgery Orthopaedic Surgery of the Spine
DX: M48.062 Spinal stenosis, lumbar region with neurogenic claudication (principal); K57.90 Diverticulosis of intestine, part unspecified, without perforation or abscess without bleeding; M47.816 Spondylosis without myelopathy or radiculopathy, lumbar region; M47.817 Spondylosis without myelopathy or radiculopathy, lumbosacral region; Z98.1 Arthrodesis status
CPT/HCPCS: 72131

== ENCOUNTER → 2024-06-08 12:53 | Outpatient (CLI) | payer MEDICARE, SELFPAY ==
[2023-02-28 18:27] VITALS: BMI 27.6
--- NOTE | 2024-06-08 13:19 | DI.MRI.S_ITS ---
PROCEDURE: MR PELVIS WO CON INDICATIONS: RUPTURE LEFT PROXIMAL HAMSTRING TENDON TECHNIQUE: Noncontrast coronal and axial T1 spin echo and STIR through the bony pelvis. COMPARISON: None. FINDINGS: Image quality: Excellent. Bones: Moderate bilateral hip joint osteoarthritic changes are seen with superior joint space narrowing, subchondral sclerosis and small marginal osteophyte formation. No intraosseous lesions or fractures identified. Postsurgical changes are noted in visualized lower lumbar spine. No evidence of gross sacral insufficiency fracture. Tendons: Mild distal bilateral gluteus medius and minimus tendinosis is seen. The nearby proximal iliotibial band also appears intact. The iliopsoas tendon appears intact, without adjacent bursal fluid collections or evidence for impingement syndrome. Tendinosis and low-grade partial-thickness tear involving bilateral hamstring tendon origins at ischial tuberosity particularly involving proximal semimembranosus tendons. No full-thickness tendon rupture. Soft tissues: Large [id number] shows no obvious acetabular labral tear.. Visualized muscles demonstrate normal bulk and internal signal. No joint effusions. No free pelvic fluid. Bladder wall thickness is normal. Genitourinary structures and bowel loops appear normal where visualized. IMPRESSION: 1. Fairly symmetric appearing moderate bilateral hip joint osteoarthritis. No marrow edema. No acute fracture or dislocation. No evidence of avascular necrosis of femoral heads. No suspicious bony lesions. Postsurgical changes in lower lumbar spine. 2. Mild distal bilateral gluteus medius and minimus tendinosis. Low-grade partial-thickness tear involving bilateral hamstring tendon origins at ischial tuberosities as described above. No full-thickness hamstring tendon rupture. No other muscle or tendon signal abnormalities. 3. Large field of views shows no obvious focal acetabular labral tear. Dictated by: Lasha Romero M.D. on 06/08/2024 at 22:25 Approved by: Lasha Romero M.D. on 06/08/2024 at 22:28
== END ==
PROVIDERS: PCP Physician Assistant; Referring Provider Orthopaedic Surgery Foot and Ankle Surgery; Visit Provider Orthopaedic Surgery Foot and Ankle Surgery
DX: S76.312D Strain of muscle, fascia and tendon of the posterior muscle group at thigh level, left thigh, subsequent encounter (principal); M16.0 Bilateral primary osteoarthritis of hip
CPT/HCPCS: 72195

== ENCOUNTER → 2024-09-16 12:44 | Outpatient (CLI) | payer MEDICARE, SELFPAY ==
[2023-02-28 18:27] VITALS: BMI 27.6
== END ==
LOC: PHYS 12:45
PROVIDERS: PCP Nurse Practitioner Family; Referring Provider Orthopaedic Surgery Foot and Ankle Surgery; Visit Provider Orthopaedic Surgery Foot and Ankle Surgery
DX: M54.16 Radiculopathy, lumbar region (principal)
CPT/HCPCS: 95886; 95910

== ENCOUNTER → 2024-10-14 10:32 | Outpatient (CLI) | payer MEDICARE, SELFPAY ==
[2023-02-28 18:27] VITALS: BMI 27.6
--- NOTE | 2024-10-14 10:33 | DI.US.S_ITS ---
PROCEDURE: US ARTERIAL DUPLEX LE BI INDICATIONS: CALF CRAMP TECHNIQUE: Color and pulse Doppler interrogation was performed of both lower extremity arterial systems, with image documentation. COMPARISON: None. FINDINGS: Right lower extremity: Common femoral artery: 137 cm/sec, with triphasic flow. Deep femoral artery: 106 cm/sec, with triphasic flow. Proximal superficial femoral artery: 80 cm/sec, with triphasic flow. Mid superficial femoral artery: 109 cm/sec, with triphasic flow. Distal superficial femoral artery: 55 cm/sec, with triphasic flow. Popliteal artery: 67 cm/sec, with triphasic flow. Posterior tibial artery: 83 cm/sec, with biphasic flow. Anterior tibial artery/dorsalis pedis: 69 cm/sec, with biphasic flow. Morales-scale imaging description: Minimal plaque involving right lower extremity arterial system Left lower extremity: Common femoral artery: 122 cm/sec, with triphasic flow. Deep femoral artery: 72 cm/sec, with triphasic flow. Proximal superficial femoral artery: 83 cm/sec, with triphasic flow. Mid superficial femoral artery: 111 cm/sec, with triphasic flow. Distal superficial femoral artery: 75 cm/sec, with biphasic flow. Popliteal artery: 60 cm/sec, with biphasic flow. Posterior tibial artery: 82 cm/sec, with biphasic flow. Anterior tibial artery/dorsalis pedis: 53 cm/sec, with biphasic flow. Morales-scale imaging description: Minimal plaques involving left lower extremity arterial system. IMPRESSION: No hemodynamically significant stenosis involving bilateral lower extremity arterial systems. Dictated by: Vu Collins M.D. on 10/15/2024 at 12:37 Approved by: Vu Collins M.D. on 10/15/2024 at 12:44
== END ==
PROVIDERS: Referring Provider Orthopaedic Surgery Foot and Ankle Surgery; Visit Provider Orthopaedic Surgery Foot and Ankle Surgery
DX: R25.2 Cramp and spasm (principal)
CPT/HCPCS: 93925